=== PATIENT | female | born 1975 | race Caucasian/White ===

== ENCOUNTER 2019-09-07 11:03 | Outpatient (CLI) | payer OTHER, SELFPAY ==
--- NOTE | ~2019-09-07 | XR_ITS ---
XR chest 2V DATE: 09/07/2019 11:27 INDICATION: Cough for 4 days TECHNIQUE: PA and lateral views COMPARISON: None FINDINGS: Normal heart size. No hilar or mediastinal enlargement. No pulmonary infiltrate or consolid ation, pleural effusion or pulmonary vascular congestion or pneumothorax. IMPRESSION: No active cardiopulmonary disease Reviewed, dictated and finalized at location B.
[2019-09-07 11:38] LABS: Basophils Absolute Auto 0.1 K/mm3 (0.0-0.1); Basophils Percent Auto 1.2 % (0.2-1.2); Eosinophils Absolute Auto 0.1 K/mm3 (0-0.3); Eosinophils Percent Auto 2.5 % (0-4.4); Hematocrit 40.9 % (37.0-47.0); Hemoglobin 13.4 g/dL (12.0-15.0); Immature Granulocyte Absolute 0.01 K/mm3 (0.00-0.031); Immature Granulocyte Percent A 0.2 % (0-0.5); Lymphocytes Absolute Auto 2.01 K/mm3 (0.9-3.2); Lymphocytes Percent Auto 39.4 % (18.3-44.2); Mean Corpuscular HGB Conc 32.8 g/dl (32-36); Mean Corpuscular Hemoglobin 29.1 pg (26-34); Mean Corpuscular Volume 88.7 fl (80-100); Mean Platelet Volume 8.4 fl (7.4-10.4); Monocytes Absolute Auto 0.3 K/mm3 (0.1-0.6); Monocytes Percent Auto 6.3 % (2.6-8.5); Neutrophils Absolute Auto 2.6 K/mm3 (1.3-6.7); Neutrophils Percent Auto 50.4 % (45.5-73.1); Platelet Count Result 343 k/mm3 (150-375); Red Blood Count 4.61 M/mm3 (4.2-5.4); Red Cell Distribution Width 12.4 % (11.5-14.5); White Blood Count 5.1 K/mm3 (4.5-10.0)
[2019-09-07 11:38] LABS: Influenza Control Positive
== END 2019-09-07 11:04 | disposition home or self-care (01) ==
PROVIDERS: PCP Internal Medicine; Visit Provider Internal Medicine
DX: R05 Cough (principal); R69 Illness, unspecified; R07.89 Other chest pain
CPT/HCPCS: 71046; 85025; 87081; 87804; 87880

== ENCOUNTER → 2020-01-14 12:55 | Outpatient (CLI) | payer OTHER, SELFPAY ==
--- NOTE | ~2020-01-14 | US_ITS ---
EXAMINATION: US pelvic complete w TV DATE: 01/14/2020 13:21 INDICATION: Right lower quadrant, pelvic, and perineal pain TECHNIQUE: Multiple transabdominal and endovaginal sonographic images of the pelvis were obtained. COMPARISON: None. FINDINGS: The uterus measures 8.5 x 4.9 x 5.9 cm. The endometrial complex measures 6 mm. The right ov raquel measures 3 x 1.8 x 2.3 cm. The left ovary measures 2.8 x 3 x 1.9 cm. There is normal vascular luis w in the ovaries. There is no free fluid in the pelvis. IMPRESSION: 1. No sonographic correlate for the patient's symptoms. Reviewed, dictated and finalized at location A.
== END ==
PROVIDERS: Visit Provider Student in an Organized Health Care Education/Training Program
DX: R10.2 Pelvic and perineal pain (principal)
CPT/HCPCS: 76830; 76856

== ENCOUNTER 2020-02-22 11:02 | Outpatient (CLI) | payer OTHER, SELFPAY ==
--- NOTE | 2020-02-22 11:04 | ECG_ITS ---
Measurements Intervals [place] Rate: 85 P: 74 RI: 168 QRS: 42 QRSD: 67 T: 44 QT: 362 QTc: 433 Interpretive Statements SINUS RHYTHM POSSIBLE LEFT ATRIAL ENLARGEMENT CANNOT RULE OUT SEPTAL INFARCT, AGE INDETERMINATE BASELINE ARTIFACT- I, II, III, AVR, AVL ABNORMAL ECG Electronically Signed On 02-22-2020 11:55:57 CDT by Osmin Campuzano D.O.
[2020-02-22 11:36] LABS: Basophils Absolute Auto 0.1 K/mm3 (0.0-0.1); Eosinophils Absolute Auto 0.2 K/mm3 (0-0.3); Eosinophils Percent Auto 3.3 % (0-4.4); Hematocrit 40.9 % (37.0-47.0); Hemoglobin 13.6 g/dL (12.0-15.0); Immature Granulocyte Absolute 0.01 K/mm3 (0.00-0.031); Immature Granulocyte Percent A 0.2 % (0-0.5); Lymphocytes Absolute Auto 1.96 K/mm3 (0.9-3.2); Lymphocytes Percent Auto 40.2 % (18.3-44.2); Mean Corpuscular HGB Conc 33.3 g/dl (32-36); Mean Corpuscular Volume 87.2 fl (80-100); Mean Platelet Volume 8.7 fl (7.4-10.4); Monocytes Absolute Auto 0.3 K/mm3 (0.1-0.6); Neutrophils Absolute Auto 2.4 K/mm3 (1.3-6.7); Neutrophils Percent Auto 49.3 % (45.5-73.1); Platelet Count Result 351 k/mm3 (150-375); Red Blood Count 4.69 M/mm3 (4.2-5.4); Red Cell Distribution Width 12.9 % (11.5-14.5); White Blood Count 4.9 K/mm3 (4.5-10.0)
== END 2020-02-22 11:03 | disposition home or self-care (01) ==
LOC: ANHSURGERY 11:04
PROVIDERS: PCP Internal Medicine; Visit Provider Student in an Organized Health Care Education/Training Program
DX: Z01.818 Encounter for other preprocedural examination (principal); R10.2 Pelvic and perineal pain; R94.31 Abnormal electrocardiogram [ECG] [EKG]
CPT/HCPCS: 36415; 85025; 86850; 86900; 86901; 93005

== ENCOUNTER 2020-03-01 02:20 | Outpatient (CLI) | payer OTHER, SELFPAY ==
[2020-03-01 19:20] LABS: SARS-CoV-2 RNA PCR Negative
== END 2020-03-01 02:21 | disposition home or self-care (01) ==
LOC: ANHCOVIDDT 02:20
PROVIDERS: PCP Internal Medicine; Visit Provider Student in an Organized Health Care Education/Training Program
DX: Z01.812 Encounter for preprocedural laboratory examination (principal); Z20.828 Contact with and (suspected) exposure to other viral communicable diseases
CPT/HCPCS: 87635; C9803; U0003

== ENCOUNTER 2020-03-03 09:18 | Inpatient (IN) | payer OTHER, SELFPAY ==
[2020-02-17 10:02] VITALS: BMI 23.8
--- NOTE | 2020-03-02 12:10 | PM.IMHP ---
H&P: HPI History of Present Illness Date/Time: 03/02/20 12:10 Patient is a 44 year old Patient initially presented to [facility] operator office in 12/2019 with a long history of chronic pelvic pain that began after her C/S in 11/2016. After this surgery, patient reports development of dysmenorrhea, menorrhagia, as well as pelvic pain that has been persistent and has progressively worsened. She reports significantly heavier menses as well as significant cramping and passage of clots. She also reports pain near her C/S scar that seems to be more external near the skin. Pain is near umbilicus and is located mostly on the lower right side of her pelvis. States that pain radiates to right hip and down thigh as well as radiates to her back. She experiences occasional pain at other times during the month as well, not just during menstrual cycle. She describes this pain as similar to ovarian stimulation when she was was going through IVF cycles. She also reports worsening dyspareunia and an increase in urinary frequency for past few months, however, denies any dysuria or malodorous urine. She was started on OCPs by previous provided, which she d/c'd due to nausea. She has also tried NuvaRing as well as a Mirena IUD without any improvement. She was started on Orilissa 150mg in 11/2018. She also takes Aleve with minimal relief. Orilissa was increased during office visit in 12/2019 and patient reports no improvement of symptoms. Patient still reports severe, constant pelvic pain and discomfort and a constant pressure sensation. States that pain is becoming disruptive to her life and preventing her from functioning normally. Patient does not desire future fertility. She desires more definitive management with a hysterectomy. Chief complaint: pelvic pain, menorrhagia Narrative: Marycarmen Franco is a 44 year old female Review of Systems Review of Systems: All systems reviewed & are unremarkable except as noted in HPI and below Constitutional: Constitutional: Reports as per HPI, Reports no additional constitutional complaints, Denies chills, Denies fever(s), Denies headache(s) and Denies night sweats Eyes: Eyes: Reports as per HPI and Reports no additional eye complaints ENT: Reports system reviewed and no additional complaints, except as documented, Reports as per HPI, Reports Normal hearing present and Denies headache(s) Cardiovascular: Cardiovascular: Reports as per HPI, Reports no additional cardiovascular complaints, Denies chest pain and Denies dyspnea Respiratory: Respiratory: Reports as per HPI, Reports no additional respiratory complaints, Denies cough and Denies dyspnea Gastrointestinal: Gastrointestinal: Reports as per HPI, Reports no additional gastrointestinal complaints, Denies abdominal pain, Denies change in bowel habits, Denies change in stool character, Denies nausea and Denies vomiting Genitourinary: Genitourinary: Reports no additional female genitourinary complaints, Reports as per HPI, Reports abnormal vaginal bleeding, Denies genital lesions, Reports menorrhagia, Denies hot flashes, Reports dyspareunia, Reports dysmenorrhea, Reports pelvic pain, Denies sexual dysfunction, Denies urinary incontinence, Denies vaginal discharge, Denies vaginal dryness and Denies vaginal odor Musculoskeletal: Musculoskeletal: Reports no additional musculoskeletal complaints and Reports as per HPI Integumentary/Breasts: Skin/Breast: Reports system reviewed and no additional complaints, except as docu, Reports as per HPI, Denies breast pain and Denies nipple discharge Neurologic: Reports system reviewed and no additional complaints, except as documented, Reports as per HPI, Reports Normal hearing present and Denies headache(s) Psychiatric: Psychiatric: Reports no additional psychiatric complaints, Reports as per HPI, Denies anxiety and Denies depression Endocrine: Endocrine: Reports no additional endocrine complaints and Reports as per HPI Hematologic/Lymphatic: Hematologic/Lymphatic: Reports
[2020-03-03] VITALS (23 sets, daily range): BP systolic 96–134; BP diastolic 56–82; PULSE 66–98; RESP 13–22; TEMP 36.3–37.2; O2SAT 97–100
[2020-03-03] MEDS: ACETAMINOPHEN 500 MG TABLET 1000 MG PO (06:34)
--- NOTE | 2020-03-03 07:00 | WPDANESEPPF ---
Anes - Initial Pre Proc Eval Procedure: Operation Date: 03/03/20 07:30 Proposed Procedures p Total Abdominal Hysterectomy With Bilateral Salpingectomy - Radha Molina MD Date/Time: 03/03/20 07:00 Surgeon: Radha Molina MD Pre Op Diagnosis: pelvic pain, menorrhagia Patient Data Age: 44 Gender: F Height: 5 ft 6.5 in Weight: 69.2 kg Allergies Allergy/AdvReac Type Severity Reaction Status Date / Time codeine AdvReac Intermediate Nausea And Verified 03/03/20 06:25 Vomiting Home Medications Medication Instructions Recorded Confirmed Type ferrous sulfate 325 mg (65 mg 325 mg PO DAILY 08/12/19 03/03/20 History iron) tablet lactobacillus combination no.8 3 3,000 mmu cells PO DAILY 08/12/19 03/03/20 History billion cell capsule omega-3 fatty acids 1,000 mg 1,000 mg PO HS 08/12/19 03/03/20 History capsule tramadol 50 mg tablet 50 mg PO Q6H PRN #30 tablet 02/01/20 03/03/20 Rx Synthroid 50 mcg tablet 50 mcg PO DAILY #30 tablet NS 02/18/20 03/03/20 Rx Patient hx anesthesia problems: post op nausea/vomiting Family hx anesthesia problems: none PMFSH Past Medical History Medical History Abnormal TSH Blood transfusion during current hospitalization BMI 22.0-22.9, adult Bronchitis Campylobacter gastroenteritis Chest discomfort Chronic sinusitis Cough Encounter for routine adult health examination without abnormal findings Exploratory laparotomy scar Hematoma Hypothyroidism Hypothyroidism (acquired) Iron deficiency anemia On alf drug therapy Otalgia Other ovarian cyst, unspecified side Reactive airways dysfunction syndrome RUQ pain SOB (shortness of breath) Surgical History Surgical History H/O knee surgery History of removal of ovarian cyst History of rhinoplasty Hx of tonsillectomy Twin delivery by [place] teeth extracted Family History Family History Mother Diabetes mellitus Family history of pancreatic cancer Grandparent Acute myocardial infarction Father Family history of pancreatic cancer Other Family history of seizure disorder Social History Social History Smoking status: Never smoker Second hand tobacco smoke exposure: No Spiritual care concerns: No Anes - Eval Final PreProcedure Day of Procedure 03/03/20 07:00 Patient weight: normal Heart: regular rate and rhythm Lungs: clear to auscultation Airway: Mallampati scale class II Neurological: alert and oriented Last oral intake: >/= 8 hours ASA classification: II Emergent: no Anesthetic plan: proceed Anesthesia type and monitoring: general ETT and standard monitoring Informed Consent: The patient's anesthetic plan and its attendant risks and benefits were discussed with the patient/family/POA. Questions were solicited and answers provided to the satisfaction of the patient/family/POA.
[2020-03-03] MEDS: KETOROLAC 15 MG/ML VIAL (*BKC) IV PUSH (07:06)
[2020-03-03] MEDS: LACTATED RINGERS 1,000 ML 30 ML IV CONT ×2 (07:06→10:06)
[2020-03-03] MEDS: SCOPOLAMINE 1.5 MG PATCH TRANSDERM (07:11)
--- NOTE | 2020-03-03 07:20 | WPDHPUPDATE1 ---
History and Physical Update Update Date/Time: 03/03/20 07:20 History and Physical has been reviewed, including an updated exam of the patient. There are NO changes in the patient's condition. Risks, benefits, and alternatives have been discussed and questions answered. Patient agrees to proceed with procedure.
[2020-03-03] MEDS: ceFAZolin 2 GM/D5W 50 ML 2 GM/50 ML BAG IVPB (07:45)
--- NOTE | 2020-03-03 10:00 | PM.PROC ---
Procedure Note - Detailed Date of procedure: 03/03/20 Pre-op diagnosis: pelvic pain, menorrhagia dysmenorrhea Post-op diagnosis: same Procedure performed: Total abdominal hysterectomy Bilateral salpingectomy Description of procedure: The patient was taken to the operating room where she self transferred to the operating room table. She was placed in the dorsal supine position. General anesthesia was administered and found to be adequate. The patient was prepped and draped in the usual sterile fashion. A Pfannenstiel skin incision was made with a scalpel and carried through to the underlying layer of fascia with the Bovie. The fascia was incised in the midline and the incision was extended laterally with the use of forceps and Peralta scissors. The inferior aspect of the fascial incision was grasped with Myesha clamps, elevated, and the underlying rectus muscles were dissected off with Peralta scissors. Attention was turned to the superior aspect of the fascial incision, which in a similar manner was grasped with Myesha clamps, elevated, and the underlying rectus muscles also dissected off with Peralta scissors. Moderately dense adhesions were noted in the midline making entry into the peritoneal cavity slightly more difficult in this area. Decision was made to access and enter peritoneal cavity just lateral to the midline. The rectus muscles were gently retracted and the peritoneum was identified, grasped with Allis clamps, and entered carefully with Metzenbaum scissors. The underlying structures were palpated with fingers and noted to be free of any posterior or lateral adhesions. The peritoneal incision was extended inferiorly to enhance visualization. Two lap pads were placed laterally beneath the rectus muscle bellies and a Luisa retractor was placed. Three additional lap pads were placed in the abdomen to displace the bowel cephalad and laterally. The uterus was grasped and guided towards the incision. Pean clamps were placed near the left and right uterine cornua for traction and elevation. The bladder was noted to be mostly inferior to the cervix. The right round ligament was identified, grasped with [place] clamp, and suture ligated. The round ligament was transected with Bovie. The anterior leaf of the broad ligament was carefully dissected towards the midline. An incision in the posterior leaf of the broad ligament on the right side was created with the Bovie. The right fallopian tube was identified and grasped with a [place] clamp. The LigaSure device was used to transect the mesosalpinx beneath the tube to the level of the cornua. The LigaSure device was then used to transect the utero-ovarian ligament on the right side. Dissection of the posterior leaf of the broad ligament was performed. Attention was then turned to the patient's left side. The left round ligament was identified, grasped with a [place] clamp, and suture ligated. The round ligament was transected with the Bovie and the anterior leaf of the broad ligament was carefully dissected towards the midline. The opposing ends were joined in the midline and a bladder flap was created to ensure the bladder was adequately displaced inferiorly. Bladder was displaced inferiorly with a sponge stick. An incision in the posterior leaf of the broad ligament on the left side was created with the Bovie. The left fallopian tube was identified and grasped with Dwaine clamp. The LigaSure device was used to transect the mesosalpinx beneath the tube to the level of the cornua. The LigaSure device was then used to transect the utero-ovarian ligament on the left side. Dissection of the posterior leaf of the broad ligament was performed and the uterine artery was skeletonized and well visualized. Attention was then turned back to the right side where the uterine artery was skeletonized and well visualized. The LigaSure device was used to cauterize the uterine artery on this side. The cardinal ligaments were serially ligated an
[2020-03-03] MEDS: DEXTROSE 5%/0.45% SOD CHL 1,000 ML 125 ML IV CONT ×2 (11:47→21:10)
[2020-03-03] MEDS: IBUPROFEN IV 800 MG/200 ML 800 MG/200 ML BAG 400 MG IVPB ×2 (13:36→19:04)
--- NOTE | 2020-03-03 13:43 | PC.NURSE ---
This patient, Marycarmen Franco, was admitted to OB 2nd Floor Room 288-00. Patient oriented to hospital policies and general routines including ID bracelet, bed and alarms, visiting hours, pain management, procedures, bathroom and other care routines, personal items, smoking policy, room service/diet, and visiting hours. Valuables list has been completed. Information on how to activate the Rapid Response Team has been discussed. Patient/Family are encouraged to report perceived risks to care and to ask questions if they do not understand what they are told or what they should do.
[2020-03-03] MEDS: ONDANSETRON INJ 4 MG/2 ML VIAL IV PUSH (15:38)
[2020-03-04] VITALS: BP 94/62; PULSE 80; RESP 18; TEMP 37; O2SAT 100
[2020-03-04] MEDS: IBUPROFEN IV 800 MG/200 ML 800 MG/200 ML BAG 400 MG IVPB ×2 (01:22→07:56)
[2020-03-04] MEDS: ONDANSETRON INJ 4 MG/2 ML VIAL IV PUSH ×2 (01:55→08:29)
[2020-03-04 03:46] VITALS: BP 94/60; PULSE 80; RESP 18; TEMP 37.1; O2SAT 100
[2020-03-04 05:12] LABS: Basophils Percent Auto 0.3 % (0.2-1.2); Eosinophils Percent Auto 0.2 % (0-4.4); Hematocrit 31.7 % (37.0-47.0); Hemoglobin 10.7 g/dL (12.0-15.0); Immature Granulocyte Absolute 0.03 K/mm3 (0.00-0.031); Immature Granulocyte Percent A 0.3 % (0-0.5); Lymphocytes Percent Auto 11.2 % (18.3-44.2); Mean Corpuscular HGB Conc 33.8 g/dl (32-36); Mean Corpuscular Hemoglobin 29.5 pg (26-34); Mean Corpuscular Volume 87.3 fl (80-100); Mean Platelet Volume 8.7 fl (7.4-10.4); Monocytes Absolute Auto 0.7 K/mm3 (0.1-0.6); Monocytes Percent Auto 7.3 % (2.6-8.5); Neutrophils Absolute Auto 7.9 K/mm3 (1.3-6.7); Neutrophils Percent Auto 80.7 % (45.5-73.1); Platelet Count Result 244 k/mm3 (150-375); Red Blood Count 3.63 M/mm3 (4.2-5.4); Red Cell Distribution Width 12.8 % (11.5-14.5); White Blood Count 9.8 K/mm3 (4.5-10.0)
[2020-03-04] MEDS: LEVOTHYROXINE SODIUM 50 MCG TABLET PO (07:55)
[2020-03-04] MEDS: DOCUSATE SODIUM 100 MG CAPSULE PO ×2 (07:55→18:29)
[2020-03-04] MEDS: SIMETHICONE 80 MG TAB.CHEW PO (07:56)
--- NOTE | 2020-03-04 08:48 | PM.GYNPNOP ---
DIGITAL MARKETING ANALYST - A/P Assessment and plan (1) History of hysterectomy: Code(s): Z90.710 - Acquired absence of both cervix and uterus Status: Acute Assessment and Plan: POD #1 s/p KARISHMA and b/l salpingectomy doing well continue routine postop care continue current pain management regimen, will add IV Ofirmev encourage OOB to chair, ambulation, and use of IS advance diet as tolerated Postoperative Procedures: Procedures Operation Date: 03/03/20 07:30 Actual Procedures Side Surgeon p Total Abdominal Hysterectomy With Bilateral Salpingectomy Bilateral Radha Molina MD Time Spent With Patient Time: Total time spent is greater than 50% in coordination of care (as documented) at patient's floor/unit and/or counseling patient: Time with patient: less than 15 minutes DIGITAL MARKETING ANALYST- PN:Subj Post-Op Subjective Date/time seen: 03/04/20 08:48 Patient reports feeling much better this AM. Pain is more controlled. Reports pain 5/10, which is tolerable. Denies any headache, chest pain, SOB, N/V. Has not had much PO yet. Franco removed this AM. Voided once since then. No flatus yet. Limited ambulation. Exam Const: General: comfortable and no acute distress GI: Inspection: non-distended GI Palp: Yes Soft to palpation and No Tenderness to palpation present (GI) Other: inc c/d/i Extrem: Right lower extremity: no edema Left lower extremity: no edema Other: no calf tenderness DIGITAL MARKETING ANALYST - PN: Obj Data Vital Signs Vital Signs: Vital Signs - 24 hr 03/03/20 10:05 03/03/20 10:09 03/03/20 10:20 Temperature 37.2 C Pulse Rate 83 70 Respiratory Rate 13 17 Blood Pressure 96/56 L 103/60 Pulse Oximetry 100 100 100 03/03/20 10:35 03/03/20 10:40 03/03/20 10:50 Temperature 36.4 C Pulse Rate 66 71 Respiratory Rate 16 19 Blood Pressure 97/62 L 109/72 Pulse Oximetry 100 99 100 03/03/20 11:00 03/03/20 11:11 03/03/20 11:30 Temperature 36.3 C L Pulse Rate 84 86 89 Respiratory Rate 16 22 H 20 Blood Pressure 106/71 123/75 111/71 Pulse Oximetry 100 100 99 03/03/20 11:45 03/03/20 12:00 03/03/20 12:30 Temperature Pulse Rate 84 98 98 Respiratory Rate 20 18 18 Blood Pressure 134/82 113/75 99/61 L Pulse Oximetry 99 100 97 03/03/20 13:00 03/03/20 14:00 03/03/20 15:13 Temperature Pulse Rate 94 98 Respiratory Rate 18 18 18 Blood Pressure 107/69 113/72 Pulse Oximetry 98 100 100 03/03/20 16:00 03/03/20 16:13 03/03/20 17:13 Temperature Pulse Rate 98 Respiratory Rate 18 16 16 Blood Pressure Pulse Oximetry 100 100 99 03/03/20 18:00 03/03/20 18:13 03/03/20 20:00 Temperature 36.8 C 36.6 C Pulse Rate 87 88 Respiratory Rate 20 20 20 Blood Pressure 100/62 97/62 L Pulse Oximetry 99 99 100 03/03/20 22:00 03/04/20 00:00 03/04/20 03:46 Temperature 37.0 C 37.1 C Pulse Rate 80 80 Respiratory Rate 16 18 18 Blood Pressure 94/62 L 94/60 L Pulse Oximetry 98 100 100 Intake/Output Intake/Output: Intake & Output 03/01/20 03/02/20 03/03/20 03/04/20 23:59 23:59 23:59 23:59 Intake Total 2150 219 Output Total 800 600 Balance 1350 -381 Meds/Results Medications: Active Medications Generic Name Dose Route Start Last Admin Trade Name Freq PRN Reason Stop Dose Admin Docusate Sodium 100 mg 03/03/20 17:00 03/04/20 07:55 Colace Capsule PO 100 mg BID HALLE Administration Hydromorphone HCl 1 mg 03/03/20 11:21 03/04/20 08:29 Dilaudid Inj IV PUSH 1 mg Q3H PRN Administration Pain Rated 7-10 Dextrose/Sodium Chloride 1,000 mls @ 125 mls/hr 03/03/20 11:21 03/03/20 21:10 Dextrose 5% Sodium Chloride 0.45% IV CONT 125 mls/hr .Q8H HALLE Administration Ibuprofen 800 mg in 200 mls @ 400 mls/hr 03/03/20 13:00 03/04/20 07:56 Caldolor 800 Mg/200 Ml IVPB 400 mls/hr Q6H HALLE Administration Hydromorphone HCl 6 mg in 30 mls @ 0 mls/hr 03/03/20 14:25 03/04/20 01:40 Dilaudid 0.2 Mg/Ml Veterinary Meat Inspector IV CONT Infused .Q0M PRN Titration PRINTMAKER Management
[2020-03-04] MEDS: DEXTROSE 5%/0.45% SOD CHL 1,000 ML 125 ML IV CONT ×2 (10:12→15:25)
[2020-03-04] MEDS: traMADol HCL 50 MG TABLET PO ×2 (14:30→20:38)
[2020-03-04] MEDS: IBUPROFEN 600 MG TABLET PO ×2 (14:30→20:38)
[2020-03-04 19:20] VITALS: BP 96/56; PULSE 79; RESP 18; TEMP 37.2; O2SAT 97
[2020-03-05] MEDS: IBUPROFEN 600 MG TABLET PO ×3 (02:40→18:39)
[2020-03-05] MEDS: traMADol HCL 50 MG TABLET PO (02:41)
[2020-03-05 07:07] VITALS: BP 96/53; PULSE 87; RESP 18; TEMP 36.2; O2SAT 98
[2020-03-05] MEDS: LEVOTHYROXINE SODIUM 50 MCG TABLET PO (07:16)
--- NOTE | 2020-03-05 07:50 | PC.NURSE ---
Dr. Molina here to see pt.
--- NOTE | 2020-03-05 08:05 | PM.GYNPNOP ---
ASBESTOS ABATEMENT WORKER - A/P Assessment and plan (1) History of hysterectomy: Code(s): Z90.710 - Acquired absence of both cervix and uterus Status: Acute Assessment and Plan: POD#2 doing well continue routine postop care encourage ambulation and use of IS will add PO Tylenol to pain regimen this AM anticipate dc home tomorrow Postoperative Procedures: Procedures Operation Date: 03/03/20 07:30 Actual Procedures Side Surgeon p Total Abdominal Hysterectomy With Bilateral Salpingectomy Bilateral Radha Molina MD Time Spent With Patient Time: Total time spent is greater than 50% in coordination of care (as documented) at patient's floor/unit and/or counseling patient: Time with patient: less than 15 minutes ASBESTOS ABATEMENT WORKER- PN:Subj Post-Op Subjective Date/time seen: 03/05/20 08:05 Patient reports feeling better this AM. Still reports soreness, however, pain reasonably controlled with PO pain medication. Reports slight headache this AM, which pt believes is attributed to hospital bed and pillow. Denies any chest pain or SOB. Reported mild nausea last night, resolved. Denies any vomiting. Ambulating well. Voiding without difficulty. +flatus. Exam Const: General: comfortable and no acute distress GI: Inspection: non-distended GI Palp: Yes Soft to palpation and No Tenderness to palpation present (GI) Other: inc c/d/i Extrem: Right lower extremity: no edema Left lower extremity: no edema Other: no calf tenderness ASBESTOS ABATEMENT WORKER - PN: Obj Data Vital Signs Vital Signs: Vital Signs - 24 hr 03/04/20 19:20 03/05/20 07:07 Temperature 37.2 C 36.2 C L Pulse Rate 79 87 Respiratory Rate 18 18 Blood Pressure 96/56 L 96/53 L Pulse Oximetry 97 98 Intake/Output Intake/Output: Intake & Output 03/02/20 03/03/20 03/04/20 03/05/20 23:59 23:59 23:59 23:59 Intake Total 2150 2934 Output Total 800 1575 Balance 1350 1359 Meds/Results Medications: Active Medications Generic Name Dose Route Start Last Admin Trade Name Freq PRN Reason Stop Dose Admin Docusate Sodium 100 mg 03/03/20 17:00 03/04/20 18:29 Colace Capsule PO 100 mg BID HALLE Administration Ibuprofen 600 mg 03/04/20 13:39 03/05/20 02:40 Motrin PO 600 mg Q6H PRN Administration Cramping Levothyroxine Sodium 50 mcg 03/04/20 06:30 03/05/20 07:16 Synthroid PO 50 mcg DAILY@0630 HALLE Administration Ondansetron HCl 4 mg 03/03/20 11:21 03/04/20 08:29 Zofran Inj IV PUSH 4 mg Q6H PRN Administration Nausea Simethicone 80 mg 03/03/20 11:21 03/04/20 07:56 Mylicon PO 80 mg Q2H PRN Administration Gas Tramadol HCl 50 mg 03/04/20 13:40 03/05/20 02:41 Ultram PO 50 mg Q6H PRN Administration Pain Rated 4-6 Labs CBC & Chem 7: 03/04/20 04:40
[2020-03-05] MEDS: ACETAMINOPHEN 325 MG TABLET 650 MG PO ×2 (12:36→21:05)
[2020-03-05] MEDS: DOCUSATE SODIUM 100 MG CAPSULE PO ×2 (12:37→17:06)
[2020-03-05] MEDS: ONDANSETRON HCL ODT 4 MG TABLET 8 MG PO (17:06)
[2020-03-05 18:35] VITALS: BP 110/69; PULSE 81; RESP 12; TEMP 36.9
[2020-03-05] MEDS: SIMETHICONE 80 MG TAB.CHEW PO (18:39)
[2020-03-06] MEDS: IBUPROFEN 600 MG TABLET PO ×2 (00:35→07:02)
[2020-03-06] MEDS: ACETAMINOPHEN 325 MG TABLET 650 MG PO (03:33)
[2020-03-06 06:50] VITALS: BP 120/62; PULSE 90; RESP 16; TEMP 36.8
[2020-03-06] MEDS: DOCUSATE SODIUM 100 MG CAPSULE PO (07:01)
[2020-03-06] MEDS: LEVOTHYROXINE SODIUM 50 MCG TABLET PO (07:03)
[2020-03-06] MEDS: SIMETHICONE 80 MG TAB.CHEW PO (07:03)
--- NOTE | 2020-03-06 08:20 | PM.GYNPNOP ---
ATTENDING AMBULATORY CARE - A/P Assessment and plan (1) Post-operative state: Code(s): Z98.890 - Other specified postprocedural states Status: Acute Assessment and Plan: POD3 s/p abdominal hysterectomy and BSO. She is doing well. Adequate pain control. Will discharge home. Discussed discharge precautions. She has follow up appointment scheduled for two weeks. Postoperative Procedures: Procedures Operation Date: 03/03/20 07:30 Actual Procedures Side Surgeon p Total Abdominal Hysterectomy With Bilateral Salpingectomy Bilateral Radha Molina MD Time Spent With Patient Time: Total time spent is greater than 50% in coordination of care (as documented) at patient's floor/unit and/or counseling patient: Time with patient: less than 15 minutes ATTENDING AMBULATORY CARE- PN:Subj Post-Op Subjective Date/time seen: 03/06/20 08:20 She states adequate pain control. She is ambulating. Positive flatus. Tolerated regular diet. No chest pain or leg pain. Exam Const: General: no acute distress Resp: Auscultation: clear to auscultation bilaterally Cardio: Rate: regular rate Rhythm: regular rhythm GI: Other: bowel sounds present, appropriate incisional tenderness, incision no drainage or erythema Extrem: General: normal to inspection, no calf tenderness bilaterally and no edema Psych: Mental Status: mental status grossly normal ATTENDING AMBULATORY CARE - PN: Obj Data Vital Signs Vital Signs: Vital Signs - 24 hr 03/05/20 18:35 03/06/20 06:50 Temperature 98.5 F 98.3 F Pulse Rate 81 90 Respiratory Rate 12 16 Blood Pressure 110/69 120/62 Intake/Output Intake/Output: Intake & Output 03/03/20 03/04/20 03/05/20 03/06/20 23:59 23:59 23:59 23:59 Intake Total 2150 2934 Output Total 800 1575 Balance 1350 1359 Meds/Results Medications: Active Medications Generic Name Dose Route Start Last Admin Trade Name Freq PRN Reason Stop Dose Admin Acetaminophen 650 mg 03/05/20 08:00 03/06/20 03:33 Tylenol Tablet PO 650 mg Q6H HALLE Administration Docusate Sodium 100 mg 03/03/20 17:00 03/06/20 07:01 Colace Capsule PO 100 mg BID HALLE Administration Ibuprofen 600 mg 03/04/20 13:39 03/06/20 07:02 Motrin PO 600 mg Q6H PRN Administration Cramping Levothyroxine Sodium 50 mcg 03/04/20 06:30 03/06/20 07:03 Synthroid PO 50 mcg DAILY@0630 HALLE Administration Ondansetron HCl 4 mg 03/05/20 21:00 Zofran Odt PO Q4-6H PRN Nausea And Vomiting Simethicone 80 mg 03/03/20 11:21 03/06/20 07:03 Mylicon PO 80 mg Q2H PRN Administration Gas Tramadol HCl 50 mg 03/04/20 13:40 03/05/20 02:41 Ultram PO 50 mg Q6H PRN Administration Pain Rated 4-6 Labs CBC & Chem 7: 03/04/20 04:40
--- NOTE | 2020-03-06 08:27 | PM.OBDSVD ---
DS: Admitting Diagnosis Admitting Diagnosis Admitting Diagnosis: pelvic pain, menorrhagia OB - DS: Summary OB Procedures : None OB Procedures Intrapartum: Other OB Procedures: : None Peripartum Data Procedures: Procedures Operation Date: 03/03/20 07:30 Actual Procedures Side Surgeon p Total Abdominal Hysterectomy With Bilateral Salpingectomy Bilateral Radha Molina MD Time Spent with Patient Time attestation: Total time spent providing and/or coordinating discharge services: Exam Const: General: comfortable Resp: Effort & Inspection: normal respiratory effort Auscultation: clear to auscultation bilaterally Cardio: Rate: regular rate GI: GI Palp: Yes Soft to palpation Psych: Appearance: grossly normal DS: Data Data Completed and Pending Pending studies at discharge: Pending at discharge 03/03/20 08:55 Surgical [PTH] Routine Discharge Plan Discharge Attending physician on discharge: Manjeet Ruvalcaba Discharging Clinician: Manjeet Ruvalcaba Anticipated Discharge Date/Time: 03/06/20 08:24 Patient Disposition: Home, Self-Care Activity: may shower, no driving and pelvic rest Diet: regular Discharge Instructions: Call for fever, chills, persistent nausea/vomiting, leg pain or redness, or vaginal bleeding more than spotting. No lifting. May take over the counter Ibuprofen and Tylenol for pain. Follow directions on bottle. Take regularly prescribed prescription medication. Patient Instructions: Antibiotic Form Stand Alone Forms: General Discharge Information Follow-up/Referrals: Radha Molina MD [Physician] - Keep Reg. Scheduled Appt. Discharge Medications: No Action ferrous sulfate [Feosol] 325 mg (65 mg iron) tablet 325 mg PO DAILY RF: 0 omega-3 fatty acids [Fish Oil Concentrate] 1,000 mg capsule 1,000 mg PO HS RF: 0 Adult Probiotic 3 billion cell capsule 3,000 mmu cells PO DAILY RF: 0 tramadol 50 mg tablet 50 mg PO Q6H PRN (Reason: pain) Qty: 30 RF: 0 levothyroxine [Synthroid] 50 mcg tablet 50 mcg PO DAILY Qty: 30 RF: 5 Date of admission: 03/03/20 09:18 Primary Care Provider: Donn Cohen Admitting Provider: Radha Molina Attending physician on admission: Radha Molina
== END 2020-03-06 09:12 | disposition home or self-care (01) | DRG 743 ==
LOC: ANHOB2 03-06 08:27
PROVIDERS: Admitting Provider Student in an Organized Health Care Education/Training Program; PCP Internal Medicine; Visit Provider Obstetrics & Gynecology
PROC: 0UT94ZZ Resection of Uterus, Percutaneous Endoscopic Approach (ICD-10-PCS; principal; 2020-03-03 07:30)
DX: N92.0 Excessive and frequent menstruation with regular cycle (principal); N94.6 Dysmenorrhea, unspecified; R10.2 Pelvic and perineal pain; E03.9 Hypothyroidism, unspecified; D50.9 Iron deficiency anemia, unspecified
CPT/HCPCS: 36415; 85025; 87635; 88307; A9270; C9803; J0131; J0690; J1100; J1170; J1200; J1741; J1885; J2250; J2370; J2405; J2704; J2710; J2765; J3010; J7120; U0003

== ENCOUNTER 2020-06-27 14:00 | Outpatient (CLI) | payer OTHER, SELFPAY ==
--- NOTE | ~2020-06-27 | XR_ITS ---
XR abdomen/kub 1V 06/27/2020 14:57 INDICATION: Right flank pain TECHNIQUE: KUB COMPARISON: CT dated 01/14/2019 FINDINGS: Bowel gas pattern is normal. There is no evidence of free air, mass, organomegaly, ascites or obstruction. No abnormal calculi are seen. The bones appear intact. IMPRESSION: 1: No acute abdominal abnormality identified. Reviewed, dictated and finalized at location A. EL ENGINEER
[2020-06-27 14:58] LABS: Basophils Absolute Auto 0.1 K/mm3 (0.0-0.1); Basophils Percent Auto 0.8 % (0.2-1.2); Eosinophils Absolute Auto 0.2 K/mm3 (0-0.3); Eosinophils Percent Auto 2.1 % (0-4.4); Hematocrit 41.6 % (37.0-47.0); Hemoglobin 13.7 g/dL (12.0-15.0); Immature Granulocyte Absolute 0.02 K/mm3 (0.00-0.031); Immature Granulocyte Percent A 0.3 % (0-0.5); Lymphocytes Percent Auto 27.4 % (18.3-44.2); Mean Corpuscular HGB Conc 32.9 g/dl (32-36); Mean Corpuscular Hemoglobin 29.1 pg (26-34); Mean Corpuscular Volume 88.5 fl (80-100); Mean Platelet Volume 8.9 fl (7.4-10.4); Monocytes Absolute Auto 0.4 K/mm3 (0.1-0.6); Monocytes Percent Auto 5.5 % (2.6-8.5); Neutrophils Absolute Auto 4.7 K/mm3 (1.3-6.7); Neutrophils Percent Auto 63.9 % (45.5-73.1); Platelet Count Result 390 k/mm3 (150-375); Red Cell Distribution Width 12.7 % (11.5-14.5); White Blood Count 7.3 K/mm3 (4.5-10.0)
[2020-06-27 15:00] LABS: Add Urine Microscopic? NO; Appearance Urine Clear (Clear); Bilirubin Urine Negative (Negative); Blood Urine Negative (Negative); Color Urine Straw (Yellow); Glucose Urine UA Negative (Negative); Ketones Urine Negative (Negative); Leukocyte Esterase Ur Negative LEU/UL (NEGATIVE); Nitrate Urine Negative (Negative); Protein Urine Negative (Negative); Specific Grav Ur 1.009 (1.001-1.035); Urobilinogen Urine Negative mg/dL (<2.0)
[2020-06-27 15:09] LABS: Alanine Aminotransferase 36 U/L (4-35); Albumin Level 4.3 g/dL (3.5-5.1); Alkaline Phosphatase 40 U/L (38-126); Amylase 64 U/L (30-110); Aspartate Amino Transferase 37 U/L (14-36); Bilirubin,Total 0.3 mg/dL (0.2-1.3); Lipase 135 U/L (23-300)
[2020-06-27 15:11] LABS: Alanine Aminotransferase 36 U/L (4-35); Albumin Level 4.3 g/dL (3.5-5.1); Alkaline Phosphatase 41 U/L (38-126); Anion Gap 6 mmol/L (8-16); Aspartate Amino Transferase 36 U/L (14-36); Bilirubin,Total 0.3 mg/dL (0.2-1.3); Blood Urea Nitrogen 17 mg/dL (7-17); Calcium 9.9 mg/dL (8.4-10.2); Carbon Dioxide 28 mmol/L (22-30); Chloride 104 mmol/L (98-107); Estimated Glomerular Filt Rate > 60; Glucose 98 mg/dL (65-105); Potassium 4.1 mmol/L (3.4-5.0); Sodium 138 mmol/L (137-145)
== END 2020-06-27 14:01 | disposition home or self-care (01) ==
PROVIDERS: PCP Internal Medicine; Visit Provider Internal Medicine
DX: R35.0 Frequency of micturition (principal); R10.11 Right upper quadrant pain; R79.89 Other specified abnormal findings of blood chemistry; Z51.81 Encounter for therapeutic drug level monitoring; Z79.899 Other long term (current) drug therapy
CPT/HCPCS: 36415; 74018; 80053; 80076; 81003; 82150; 83690; 85025; 87086

== ENCOUNTER 2020-06-28 08:02 | Outpatient (CLI) | payer OTHER, SELFPAY ==
--- NOTE | ~2020-06-28 | US_ITS ---
US right upper quadrant INDICATION: Right upper quadrant pain PROCEDURE: Realtime right upper abdominal ultrasound. COMPARISON: No prior studies for comparison. FINDINGS: The pancreas is normal without focal mass or pancreatic ductal dilation. Liver echotexture is normal without focal mass or intrahepatic biliary dilatation. There is normal directional flow i n the portal vein. The gallbladder is normal without stones, gallbladder wall thickening or pericholecystic fluid. Comm on bile duct measures 3 mm. No sonographic Drew's sign. IMPRESSION: 1: Normal limited abdominal ultrasound. Reviewed, dictated and finalized at location A. SEXUAL ASSAULT
== END 2020-06-28 08:03 | disposition home or self-care (01) ==
PROVIDERS: PCP Internal Medicine; Visit Provider Internal Medicine
DX: R10.11 Right upper quadrant pain (principal); R35.0 Frequency of micturition
CPT/HCPCS: 76705

== ENCOUNTER → 2020-07-03 11:15 | Outpatient (CLI) | payer OTHER, SELFPAY ==
--- NOTE | ~2020-07-03 | MM_ITS ---
EXAMINATION: MM screening dickson BI w tiffanie HISTORY: Screening TECHNIQUE: Craniocaudal and mediolateral oblique 3-D tomosynthesis images were obtained and synthetic 2-D images were generated. CAD analysis was submitted and interpreted. COMPARISON: 03/31/2018 BREAST PARENCHYMAL COMPOSITION: The breasts are heterogeneously dense, which may obscure small masses . FINDINGS: There is no evidence of suspicious mass, calcification, or architectural distortion to sugg est malignancy in either breast. There has been no suspicious interval change. IMPRESSION: 1. No mammographic evidence of malignancy. 2. Recommend routine screening mammography in one year. BI-RADS Category 1: Negative Reviewed, dictated and finalized at location A. LOGY MANAGER
== END ==
PROVIDERS: PCP Internal Medicine; Visit Provider Student in an Organized Health Care Education/Training Program
DX: Z12.31 Encounter for screening mammogram for malignant neoplasm of breast (principal)
CPT/HCPCS: 77063; 77067

== ENCOUNTER → 2020-10-19 12:45 | Outpatient (CLI) | payer OTHER, SELFPAY ==
--- NOTE | ~2020-10-19 | US_ITS ---
EXAMINATION: US pelvic complete w TV DATE: 10/19/2020 13:18 INDICATION: Pelvic pain. Comparison:Ultrasound dated 01/14/2020 TECHNIQUE: Multiple transabdominal and endovaginal sonographic images of the pelvis performed. FINDINGS: The uterus is surgically absent. The right ovary measures 4.3 x 2 x 3.8 cm and the left ova ry measures 3 x 2 x 2.7 cm. There are small follicles in each ovary. Normal doppler signal in both o varies. There is no free fluid in the pelvis. There are no abnormal masses seen on either side. IMPRESSION: 1. Unremarkable pelvic ultrasound post hysterectomy. Reviewed, dictated and finalized at location B.
== END ==
PROVIDERS: Visit Provider Student in an Organized Health Care Education/Training Program
DX: R10.2 Pelvic and perineal pain (principal)
CPT/HCPCS: 76830; 76856

== ENCOUNTER 2021-01-23 01:59 | Day surgery (SDC) | payer OTHER, SELFPAY ==
[2021-01-09 14:32] VITALS: BMI 25.2
[2021-01-23 09:02] VITALS: BP 108/74; PULSE 87; RESP 18; TEMP 36.5; O2SAT 99; BMI 27.1
--- NOTE | 2021-01-23 09:30 | WPDANESEPPF ---
Anes - Initial Pre Proc Eval Procedure: Operation Date: 01/23/21 10:15 Proposed Procedures p Colonoscopy - Guillermo Romero MD Date/Time: 01/23/21 09:30 Surgeon: Guillermo Romero MD Pre Op Diagnosis: diarrhea Patient Data Age: 45 Gender: F Height: 1.7 m Weight: 78.7 kg Last Vital Signs Temp 36.5 C 01/23/21 09:02 Pulse 87 01/23/21 09:02 Resp 18 01/23/21 09:02 BP 108/74 01/23/21 09:02 Pulse Ox 99 01/23/21 09:02 Allergies Allergy/AdvReac Type Severity Reaction Status Date / Time codeine AdvReac Intermediate Nausea And Verified 01/23/21 09:01 Vomiting Home Medications Medication Instructions Recorded Confirmed Type lactobacillus combination no.8 3 3,000 mmu cells PO DAILY 08/12/19 01/09/21 History billion cell capsule omega-3 fatty acids 1,000 mg 1,000 mg PO HS 08/12/19 01/09/21 History capsule levocetirizine 5 mg tablet 5 mg PO DAILY PRN 05/29/20 01/09/21 History Synthroid 88 mcg tablet 88 mcg PO DAILY #90 tablet NS 09/21/20 01/23/21 Rx Patient hx anesthesia problems: none Family hx anesthesia problems: none PMFSH Past Medical History Medical History Abnormal TSH Blood transfusion during current hospitalization BMI 22.0-22.9, adult BMI 25.0-25.9,adult BMI 26.0-26.9,adult Bronchitis Campylobacter gastroenteritis Chest discomfort Chronic sinusitis Costochondritis Cough Encounter for routine adult health examination without abnormal findings Exploratory laparotomy scar Hematoma Hypothyroidism Hypothyroidism (acquired) Iron deficiency anemia On intermediate drug therapy Otalgia Other ovarian cyst, unspecified side Reactive airways dysfunction syndrome RUQ pain Sinus headache SOB (shortness of breath) Swelling, lymph nodes URI (upper respiratory infection) Surgical History Surgical History H/O knee surgery History of removal of ovarian cyst History of rhinoplasty Hx of tonsillectomy S/P total hysterectomy Twin delivery by [place] teeth extracted Family History Family History Mother Diabetes mellitus Family history of pancreatic cancer Grandparent Acute myocardial infarction Father Family history of pancreatic cancer Other Family history of seizure disorder Social History Social History Smoking status: Never smoker Second hand tobacco smoke exposure: No Alcohol intake: current Alcohol use details: Monthly Living arrangements: alone Spiritual care concerns: No Anes - Eval Final PreProcedure Day of Procedure 01/23/21 09:30 Patient weight: overweight Heart: regular rate and rhythm Lungs: clear to auscultation and normal air movement Airway: Mallampati scale class II Neurological: alert and oriented Last oral intake: >/= 8 hours ASA classification: II Emergent: no Anesthetic plan: proceed Anesthesia type and monitoring: general GIVS Informed Consent: The patient's anesthetic plan and its attendant risks and benefits were discussed with the patient/family/POA. Questions were solicited and answers provided to the satisfaction of the patient/family/POA.
--- NOTE | 2021-01-23 10:30 | WPDHPUPDATE1 ---
History and Physical Update Update Date/Time: 01/23/21 10:30 History and Physical has been reviewed, including an updated exam of the patient. There are NO changes in the patient's condition. Risks, benefits, and alternatives have been discussed and questions answered. Patient agrees to proceed with procedure.
[2021-01-23] MEDS: LACTATED RINGERS 1,000 ML 150 ML IV CONT (10:33)
[2021-01-23 10:58] VITALS: BP 95/55; PULSE 86; RESP 23; O2SAT 100
[2021-01-23 11:08] VITALS: BP 104/68; PULSE 86; RESP 23; O2SAT 100
[2021-01-23 11:15] VITALS: BP 115/72; PULSE 75; RESP 23; O2SAT 98
== END 2021-01-23 11:40 | disposition home or self-care (01) ==
PROVIDERS: PCP Internal Medicine; Visit Provider Internal Medicine Gastroenterology
PROC: 0DJD8ZZ Inspection of Lower Intestinal Tract, Via Natural or Artificial Opening Endoscopic (ICD-10-PCS; CPT 45378; principal; 2021-01-23 10:15)
DX: R19.7 Diarrhea, unspecified (principal); R10.9 Unspecified abdominal pain; E03.9 Hypothyroidism, unspecified; D50.8 Other iron deficiency anemias
CPT/HCPCS: 45380; 88305; J2704; J7120

== ENCOUNTER 2021-02-08 11:00 | Outpatient (RCR) | payer OTHER, SELFPAY ==
--- NOTE | 2020-11-23 14:02 | PTOPEVAL ---
INITIAL PHYSICAL THERAPY EVALUATION and PLAN OF CARE Thank you for referring Marycarmen Franco to [facility].? Marycarmen is scheduled to be seen for physical therapy? 1x/week for 5 weeks. Please review, sign, date and return this plan of care MEKA. I agree with and certify that the following plan of care is medically necessary. Referring Physician Date Admitting Provider: Attending Provider: Radha Molina MD Referring Provider: *PT Outpatient Evaluation Start: 11/23/20 09:38 Freq: Status: Active Protocol: Document 11/23/20 09:35 MARK (Rec: 11/23/20 11:04 MARK [id number]) Therapy Assessment Status Assessment Status Assessment Status Evaluation Outpatient Past Medical History Past Medical History Source of Past Medical History Recalled from Previous Visit, Confirmed with Patient/Family Neurological History Hx Neurological Disorders No Significant History Cardiovascular History Hx Cardiac Disorders No Significant History Respiratory History Hx Respiratory Disorders No Significant History Gastrointestinal History Hx Other Gastrointestinal Disorders Yes: COLITIS Genitourinary History Hx Genitourinary Disorders No Significant History Musculoskeletal History Hx Orthopedic Surgery Yes: ACL R HAMSTRING GRAFT 1997 Hematological History Hx Anemia Yes Hx Blood Transfusions Yes: AFTER Endocrine History Hx Hypothyroidism Yes HEENT History Hx Tonsillectomy Yes Hx Sinus Problems Yes: SINUS SURGERY X2 Integumentary History Hx Skin Disorders No Significant History Reproductive History Hx Section Yes: 12/2013 Hx Hysterectomy Yes: 03/03/2020-uterus, fallopian tubes,endometriosis Hx Other Reproductive Disorders Yes: PELVIC PAIN Psychosocial History Hx Psychiatric Disorders No Significant History Pain History History of Any Previous or Ongoing No Significant History Instance of Pain Anesthesia History Hx Post-Op Nausea/Vomiting Yes Evaluation Information Problem Diagnosis pelvic and perineal pain Onset ~ 1 year after C section Subjective Information Began to feel R lower quadrant Query Text:As Reported By Patient/ pain - started below C Family section scar. Pain continued - then had hysterectomy - felt good afterwards, then beginning of 2020 pain began to return into R lower pelvic area, and now radiating up into R rib region. Limited with prolonged acti
--- NOTE | 2020-12-28 11:12 | PTOPEVAL ---
PHYSICAL THERAPY RE-EVALUATION and UPDATED PLAN OF CARE Thank you for referring Marycarmen Franco to [facility] [place].? Marycarmen is scheduled to be seen for a physical therapy?recheck in 3 weeks. Please review, sign, date and return this plan of care MEKA. I agree with and certify that the following plan of care is medically necessary. Referring Physician Date Admitting Provider: Attending Provider: Radha Molina MD Referring Provider: Therapy Assessment Status Assessment Status Assessment Status Re-evaluation Evaluation Information Problem Diagnosis pelvic and perineal pain Subjective Information Marycarmen reports discomfort Query Text:As Reported By Patient/ more on the outside region now Family - points to R inguinal region . The discomfort is most noticeable at the end of her work day. Bending over and sitting are both doing better. She states doing ~ 75% improved. Pain Assessment Timing of Pain Assessment Timing of Pain Assessment Assessment Pain Scale Pain Scale Used Numeric (1 - 10) Self Report Pain Assessment Right Lower Pelvis Reported Pain Level 1 Pain Description Aching Lowest Pain Intensity 1 Greatest Pain Intensity 3 Pelvic Health Evaluation Pelvic Floor Assessment Permission Received for External/ Yes Internal Perineal Exam Internal Perineal Body Palpation no tenderness at introitus. Levator ani - mild tenderness posteriorly at 6 o'clock region, L side tenderness and mild tissue tension at 2-3 o' clock region, R side - tenderness and mild/moderate tightness 8-7 o'clock region. R sided tenderness is at same region of external discomfort /tightness only internally. Additional Comments Mild decreased mobility of R lower abdominal soft tissues - superior to R inguinal ligament. Pelvis/sacrum level - symmetrical SIJ mobility with trunk flexion PT Clinical Summary Clinical Summary Protocol: PTEVCODE PT Clinical Summary Pelvic Girdle Questionnaire - Marycarmen has progressed well in PT - improved pelvic/sacral/ SIJ alignment and mobility,
--- NOTE | 2021-02-08 15:06 | PTOPEVAL ---
PHYSICAL THERAPY DISCHARGE SUMMARY Thank you for referring Marycarmen Franco to [facility].? Marycarmen has been seen for 6 visits. She is now experiencing decreased R lower quadrant discomfort and has been able to resume ADLs, IADLs, and activities with children without increase in discomfort. She is ready for d/c from PT at this time. I agree with Marycarmen's discharge from PT. Referring Physician Date Admitting Provider: Attending Provider: Radha Molina MD Referring Provider: *PT Outpatient Evaluation Start: 11/23/20 09:38 Freq: Status: Active Protocol: Document 02/08/21 11:08 MARK (Rec: 02/08/21 12:01 MARK [id number]) Therapy Assessment Status Assessment Status Assessment Status Discharge Outpatient Past Medical History Past Medical History Source of Past Medical History Recalled from Previous Visit, Confirmed with Patient/Family Neurological History Hx Neurological Disorders No Significant History Cardiovascular History Hx Cardiac Disorders No Significant History Respiratory History Hx Respiratory Disorders No Significant History Gastrointestinal History Hx Other Gastrointestinal Disorders Yes: COLITIS Genitourinary History Hx Genitourinary Disorders No Significant History Musculoskeletal History Hx Orthopedic Surgery Yes: ACL R HAMSTRING GRAFT 1998 Hematological History Hx Anemia Yes Hx Blood Transfusions Yes: AFTER Endocrine History Hx Hypothyroidism Yes HEENT History Hx Tonsillectomy Yes Hx Sinus Problems Yes: SINUS SURGERY X2 Integumentary History Hx Skin Disorders No Significant History Reproductive History Hx Section Yes: 12/2013 Hx Hysterectomy Yes: 03/03/2020-uterus, fallopian tubes,endometriosis Psychosocial History Hx Psychiatric Disorders No Significant History Pain History History of Any Previous or Ongoing No Significant History Instance of Pain Anesthesia History Hx Post-Op Nausea/Vomiting Yes Evaluation Information Problem Diagnosis pelvic and perineal pain Subjective Information Marycarmen states that she will Query Text:As Reported By Patient/ get some mild discomfort still Family towards the end of her work day. Bending over and activities with her children are fine. No incontinence dysfunction. Pain Assessment Timing of Pain Assessment Timing of Pain Assessment Assessment Pain Scale Pain Scale Used Numeric (1 - 10) Self Report Pain Assessment Right Lower Pelvis Reported Pain Level 1 Pain Description
== END 2021-02-14 11:18 | disposition home or self-care (01) ==
LOC: ANHPT 11:00
PROVIDERS: PCP Internal Medicine; Visit Provider Student in an Organized Health Care Education/Training Program
DX: R10.2 Pelvic and perineal pain (principal)
CPT/HCPCS: 97140; 97162

== ENCOUNTER → 2021-02-26 07:25 | Outpatient (CLI) | payer OTHER, SELFPAY ==
[2021-02-28 20:24] LABS: SARS-CoV-2 RNA PCR Negative
== END ==
PROVIDERS: PCP Internal Medicine; Visit Provider Internal Medicine
DX: Z20.822 Contact with and (suspected) exposure to COVID-19 (principal)
CPT/HCPCS: C9803; U0003; U0005

== ENCOUNTER 2021-04-04 10:07 | Outpatient (CLI) | payer OTHER, SELFPAY ==
--- NOTE | ~2021-04-04 | NM_ITS ---
EXAMINATION: NM hepatobiliary wo pharm DATE: 04/04/2021 14:02 INDICATION: Nausea. COMPARISON: CT abdomen and pelvis 01/14/2019 TECHNIQUE: 4.8 mCi Tc-99m mebrofenin (Choletec) was administered intravenously. Scintigraphic images of the abdomen were obtained for one hour. Then, the patient drank 8 oz Ensure, and imaging was cont inued for 60 minutes. FINDINGS: There is normal clearance of radiotracer from the blood pool. There is homogeneous tracer u ptake by the liver. Activity progresses to the bowel and gallbladder. Gallbladder ejection fraction (GBEF) was 58%. Note that with this technique, normal GBEF >= 33%. IMPRESSION: 1. Normal hepatobiliary scintigraphy. Reviewed, dictated and finalized at location A.
== END 2021-04-04 10:08 | disposition home or self-care (01) ==
LOC: ANHIMG 10:11
PROVIDERS: PCP Internal Medicine; Visit Provider Internal Medicine
DX: R11.0 Nausea (principal); R10.11 Right upper quadrant pain
CPT/HCPCS: 78226; A9537

== ENCOUNTER 2021-04-06 08:52 | Outpatient (CLI) | payer OTHER, SELFPAY ==
--- NOTE | ~2021-04-06 | XR_ITS ---
XR UGIAC w small bowel DATE: 04/06/2021 09:46 INDICATION: Right-sided abdominal pain, nausea TECHNIQUE: Air-contrast upper gastrointestinal series and small bowel follow-through 1.7 minutes fluoroscopy time DAP: 38.227 136 images COMPARISON: None FINDINGS: There is normal deglutition and esophageal peristalsis. No stricture, mucosal fold thickeni ng, erosion, ulceration, diverticulum or intraluminal mass lesion of the esophagus, stomach or duoden um. The duodenal bulb is normally shaped. There is normal transit of contrast material through the sm all bowel. No mucosal fold thickening, stricture, obstruction, abnormal dilatation or intraluminal ma ss lesion of the small bowel. Spot images of the terminal ileum reveal no abnormality. IMPRESSION: Normal examination Reviewed, dictated and finalized at Location A. Reviewed, dictated and finalized at location A. IMPRESSION: Normal examination
== END 2021-04-06 08:53 | disposition home or self-care (01) ==
LOC: ANHIMG 08:55
PROVIDERS: PCP Internal Medicine; Visit Provider Internal Medicine
DX: R11.0 Nausea (principal); R10.11 Right upper quadrant pain
CPT/HCPCS: 74246; 74248

== ENCOUNTER → 2021-10-03 11:08 | Outpatient (CLI) | payer OTHER, SELFPAY ==
--- NOTE | ~2021-10-03 | MM_ITS ---
EXAMINATION: MM screening dickson BI w tiffanie HISTORY: Screening mammogram TECHNIQUE: Craniocaudal and mediolateral oblique 3-D tomosynthesis images were obtained and synthetic 2-D images were generated. CAD analysis was submitted and interpreted. COMPARISON: 07/03/2020, 03/31/2018 bilateral screening mammogram examinations BREAST PARENCHYMAL COMPOSITION: The breasts are heterogeneously dense, which may obscure small masses . FINDINGS: There is no evidence of suspicious mass, calcification, or architectural distortion to sugg est malignancy in either breast. There has been no suspicious interval change. IMPRESSION: 1. No mammographic evidence of malignancy. 2. Recommend routine screening mammography in one year. BI-RADS Category 1: Negative Reviewed, dictated and finalized at location A.
== END ==
PROVIDERS: PCP Internal Medicine; Visit Provider Student in an Organized Health Care Education/Training Program
DX: Z12.31 Encounter for screening mammogram for malignant neoplasm of breast (principal)
CPT/HCPCS: 77063; 77067

== ENCOUNTER 2021-11-07 09:27 | Outpatient (CLI) | payer OTHER, SELFPAY ==
--- NOTE | ~2021-11-07 | US_ITS ---
EXAMINATION: US pelvic complete w TV DATE: 11/07/2021 10:03 INDICATION: Status post hysterectomy. Pelvic pain. Comparison:Ultrasound dated 10/19/2020 TECHNIQUE: Multiple transabdominal and endovaginal sonographic images of the pelvis performed. FINDINGS: The uterus is surgically absent. The right ovary measures 4.2 x 3.1 x 3 cm and the left ovary measures 2.4 x 2.2 x 1.3 cm. There is a right ovarian cyst measuring 3.2 x 2.3 x 2.5 cm Normal doppler signal in both ovaries. There is no free fluid in the pelvis. There are no abnormal masses seen on either side. IMPRESSION: 1. Right ovarian cyst measuring 3.2 cm maximum dimension. Reviewed, dictated and finalized at location A.
== END 2021-11-07 09:28 | disposition home or self-care (01) ==
PROVIDERS: PCP Internal Medicine; Visit Provider Student in an Organized Health Care Education/Training Program
DX: R10.2 Pelvic and perineal pain (principal)
CPT/HCPCS: 76830; 76856

== ENCOUNTER 2022-02-13 09:33 | Outpatient (CLI) | payer OTHER, SELFPAY ==
--- NOTE | 2022-02-13 09:30 | ECG_ITS ---
Measurements Intervals [place] Rate: 85 P: 57 PA: 148 QRS: 24 QRSD: 74 T: 36 QT: 356 QTc: 425 Interpretive Statements SINUS RHYTHM BASELINE ARTIFACT CANNOT RULE OUT SEPTAL INFARCT AGE INDETERMINATE BORDERLINE ECG COMPARED TO ECG 02/22/2020 11:43:11 NO SIGNIFICANT CHANGES Electronically Signed On 02-13-2022 16:08:08 CDT by Ruperto Valdes M.D.
== END 2022-02-13 09:34 | disposition home or self-care (01) ==
PROVIDERS: PCP Internal Medicine; Visit Provider Student in an Organized Health Care Education/Training Program
DX: Z01.810 Encounter for preprocedural cardiovascular examination (principal); E78.5 Hyperlipidemia, unspecified
CPT/HCPCS: 93005

== ENCOUNTER 2022-02-15 01:08 | Day surgery (SDC) | payer OTHER, SELFPAY ==
[2022-02-11 16:43] VITALS: BMI 24.0
--- NOTE | 2022-02-11 17:03 | SUR.PREOP ---
Report to the Outpatient Waiting Room, entrance under the green pavilion located off [facility], at time 0800 on date 02/11/22. OR Time: 1000. - You and your visitor will be asked to self-screen and do not enter if you have any COVID symptoms. - Only one visitor and NO children visitors are allowed at this time. - The patient visitor is requested to leave or wait in car when not with patient due to restrictions. - A mask is required within the hospital. Patients may have clear liquids (water, carbonated beverages, clear teas, apple juice) until 3 hours prior to surgery (0700) with a maximum of 20 ounces. - No food from midnight until time of surgery - Infants may have breast milk until 4 hours before surgery, formula 6 hours prior to surgery. - Children will be allowed to drink immediately following surgery. If applicable, please bring a bottle or sippy cup to assist with drinking. Juice, water, soda, and popsicles are readily available. For infants on formula, please bring formula the day of surgery. Pacifiers are allowed. Take the following medications with a SIP of water the morning of surgery: Synthroid Medications to discontinue per physician Vitamins/supplements Date to take last dose 02/12/22 Please no make-up, nail kenyan, hairspray, perfume, deodorant, or body powder the day of surgery. No jewelry (including any body piercings) or valuables the day of surgery, leave them at home. Please take a shower or bath the night before, or the morning of, surgery with an antibacterial soap. Wear comfortable, loose fitting clothing. Children are encouraged to wear pajamas. - Jewelry must be removed prior to entering the operating room. Rings and piercings that are not removed may be cut off. - The hospital will not accept responsibility for valuables. - Please leave all valuables, including medications, at home the day of surgery. If you are going home after surgery, a licensed electric train driver must drive you home. - NO public transportation without another adult. - We recommend that an adult stay with you for 24 hours following discharge. - We also recommend that you do not drive, make important decision, drink alcoholic beverages, or take any drugs that were not prescribed by your health care provider for at least 24 hours after your discharge time. For Pediatric surgeries, we recommend two adults accompany the child home (only one inside the building at this time). Follow any additional instructions given to you from your surgeon. If you or anyone in your household have experienced Covid symptoms in the past week, please notify your surgeon or the nurse liaison at the phone number below for possible testing. Telephone instructions given to patient and asked if any additional questions and then verbalized understanding. Patient advised to call surgeon office or pre surgery nurse liaison [phone] if any additional questions.
--- NOTE | 2022-02-14 09:30 | WPDANESEPPF ---
Anes - Initial Pre Proc Eval Procedure: Operation Date: 02/15/22 10:00 Proposed Procedures p Laparoscopic Right Oophorectomy - Radha Molina MD Date/Time: 02/14/22 09:31 Surgeon: Radha Molina MD Pre Op Diagnosis: pelvic and perineal pain, ovarian cyst Patient Data Age: 46 Gender: F Height: 1.7 m Weight: 69.5 kg Allergies Allergy/AdvReac Type Severity Reaction Status Date / Time codeine AdvReac Intermediate Nausea And Verified 02/15/22 08:25 Vomiting Home Medications Medication Instructions Recorded Confirmed Type lactobacillus combination no.8 3 3,000 mmu cells PO DAILY 08/12/19 02/11/22 History billion cell capsule (Adult Probiotic) levocetirizine 5 mg tablet (Xyzal) 5 mg PO DAILY PRN Allergy Symptoms 05/29/20 02/11/22 History ibuprofen 800 mg tablet See Rx Instructions .Route 06/20/21 02/15/22 Rx .COMPLEX #45 tabs naproxen 500 mg tablet See Rx Instructions .Route 09/21/21 02/15/22 Rx .COMPLEX #60 tabs pravastatin 40 mg tablet See Rx Instructions .Route 09/24/21 02/11/22 Rx .COMPLEX #90 tabs Synthroid 100 mcg tablet 100 mcg PO DAILY #90 tabs 10/10/21 02/11/22 Rx (levothyroxine) pantoprazole 40 mg tablet,delayed 40 mg PO QAM 10/10/21 02/11/22 History release albuterol sulfate 90 mcg/actuation 2 inh inhalation Q4-6H PRN 01/30/22 02/15/22 Rx aerosol inhaler shortness of breath or wheezing #8.5 grams Patient hx anesthesia problems: none Family hx anesthesia problems: none Results Review: All pre-operative results and documents have been reviewed as part of the pre-operative evaluation. [facility] Past Medical History Medical History Abnormal TSH Blood transfusion during current hospitalization BMI 22.0-22.9, adult BMI 24.0-24.9, adult BMI 25.0-25.9,adult BMI 26.0-26.9,adult Bronchitis Campylobacter gastroenteritis Chest discomfort Chronic sinusitis Costochondritis Cough Elevated glucose Encounter for preventive health examination Encounter for routine adult health examination without abnormal findings Exploratory laparotomy scar Exposure to COVID-19 virus Hematoma Hyperlipidemia Hypothyroidism Hypothyroidism (acquired) Iron deficiency anemia Nausea On roasterman drug therapy Otalgia Other ovarian cyst, unspecified side Ovarian cyst PONV (postoperative nausea and vomiting) Reactive airways dysfunction syndrome RUQ pain Sinus headache SOB (shortness of breath) Swelling, lymph nodes URI (upper respiratory infection) Surgical History Surgical History H/O knee surgery History of removal of ovarian cyst History of rhinoplasty Hx of tonsillectomy S/P total hysterectomy Twin delivery by [place] teeth extracted Family History Family History Mother Diabetes mellitus Family history of pancreatic cancer Grandparent Acute myocardial infarction Father Family history of pancreatic cancer Other Family history of seizure disorder Social History Social History Smoking status: Never smoker Second hand tobacco smoke exposure: No Alcohol intake: current Alcohol use details: very rare- socially once a month Living arrangements: with family Spiritual care concerns: No Anes - Eval Final PreProcedure Day of Procedure 02/14/22 09:31 Patient weight: normal Heart: regular rate and rhythm Lungs: clear to auscultation Airway: Mallampati scale class II Neurological: alert and oriented Last oral intake: >/= 8 hours ASA classification: II Emergent: no Anesthetic plan: proceed Anesthesia type and monitoring: general ETT and standard monitoring Results Review: All pre-operative results and documents have been reviewed as part of the pre-operative evaluation. Informed Consent: The patient's anesthetic plan and its
--- NOTE | 2022-02-14 17:21 | PM.IMHP ---
H&P: HPI History of Present Illness Date/Time: 02/14/22 17:21 Chief Complaint: pelvic pain Narrative: Patient is a 46yo woman s/p KARISHMA/bilateral salpingectomy in 02/2020. For past several months, patient reported cyclic pelvic pain that was originally cycle, however, gradually became more constant over time. Pain is mostly right sided pelvic pain and lower back pain. Patient describes pain as a constant awful period with painful cramping. She denies significant pain on left side. She failed a trial of medical management with OCPs and is frustrated and tired of the pain. A 3cm right ovarian cyst was also noted on imaging. After discussion, decision made to perform a diagnostic laparoscopy and right oophorectomy in an attempt to alleviate symptoms. Review of Systems Review of Systems: All systems reviewed & are unremarkable except as noted in HPI and below Constitutional: Constitutional: Reports as per HPI and Reports no additional constitutional complaints Eyes: Eyes: Reports as per HPI and Reports no additional eye complaints ENT: Reports system reviewed and no additional complaints, except as documented and Reports as per HPI Cardiovascular: Cardiovascular: Reports as per HPI and Reports no additional cardiovascular complaints Respiratory: Respiratory: Reports as per HPI and Reports no additional respiratory complaints Gastrointestinal: Gastrointestinal: Reports as per HPI and Reports no additional gastrointestinal complaints Genitourinary: Genitourinary: Reports no additional female genitourinary complaints and Reports as per HPI Musculoskeletal: Musculoskeletal: Reports no additional musculoskeletal complaints and Reports as per HPI Integumentary/Breasts: Skin/Breast: Reports system reviewed and no additional complaints, except as docu and Reports as per HPI Neurologic: Reports system reviewed and no additional complaints, except as documented and Reports as per HPI Psychiatric: Psychiatric: Reports no additional psychiatric complaints and Reports as per HPI Endocrine: Endocrine: Reports no additional endocrine complaints and Reports as per HPI Hematologic/Lymphatic: Hematologic/Lymphatic: Reports no additional hematologic/lymphatic complaints and Reports as per HPI Allergic/Immunologic: Allergic/Immunologic: Reports no additional allergic/immunologic complaints and Reports as per HPI [facility] Past Medical History Medical History Abnormal TSH Blood transfusion during current hospitalization BMI 22.0-22.9, adult BMI 24.0-24.9, adult BMI 25.0-25.9,adult BMI 26.0-26.9,adult Bronchitis Campylobacter gastroenteritis Chest discomfort Chronic sinusitis Costochondritis Cough Elevated glucose Encounter for preventive health examination Encounter for routine adult health examination without abnormal findings Exploratory laparotomy scar Exposure to COVID-19 virus Hematoma Hyperlipidemia Hypothyroidism Hypothyroidism (acquired) Iron deficiency anemia Nausea 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 Otalgia Other ovarian cyst, unspecified side Ovarian cyst PONV (postoperative nausea and vomiting) Reactive airways dysfunction syndrome RUQ pain Sinus headache SOB (shortness of breath) Swelling, lymph nodes URI (upper respiratory infection) Surgical History Surgical History H/O knee surgery History of removal of ovarian cyst History of rhinoplasty Hx of tonsillectomy S/P total hysterectomy Twin delivery by [place] teeth extracted Family History Family History Mother Diabetes mellitus Family history of pancreatic cancer Grandparent Acute myocardial infarction Father Family history of pancreatic cancer Other Family history of seizure disorder Social History Social History Smoking status: Never smoke
[2022-02-15] VITALS (10 sets, daily range): BP systolic 97–115; BP diastolic 61–89; PULSE 45–83; RESP 14–20; TEMP 36.4–36.5; O2SAT 98–100
[2022-02-15] MEDS: ACETAMINOPHEN 500 MG TABLET 1000 MG PO (08:30)
[2022-02-15] MEDS: LACTATED RINGERS 1,000 ML 30 ML IV CONT ×2 (08:40→10:57)
[2022-02-15] MEDS: KETOROLAC 15 MG/ML VIAL (*BKC) IV PUSH (08:43)
[2022-02-15] MEDS: SCOPOLAMINE 1.5 MG PATCH TRANSDERM (09:06)
--- NOTE | 2022-02-15 09:15 | WPDHPUPDATE1 ---
History and Physical Update Update Date/Time: 02/15/22 09:15 History and Physical has been reviewed, including an updated exam of the patient. There are NO changes in the patient's condition. Risks, benefits, and alternatives have been discussed and questions answered. Patient agrees to proceed with procedure.
[2022-02-15] MEDS: BUPIVACAINE/EPINEPHRINE 0.25% 50 ML VIAL 30 ML INFILTRATE (10:51)
[2022-02-15] MEDS: fentaNYL CITRATE INJ (*CRX) 100 MCG/2 ML VIAL 25 MCG IV PUSH ×3 (11:20→11:43)
--- NOTE | 2022-02-15 11:25 | W.PM.PROC2 ---
Procedure Note - Detailed Date of Procedure 02/15/22 Pre-op Diagnosis Pelvic and perineal pain, ovarian cyst Post-op Diagnosis Same Procedure Performed Diagnostic laparoscopy, lysis of adhesions, laparoscopic right oophorectomy Surgeon Radha Molina MD [employer] Aditi Todd Anesthesia General Findings Omental adhesion to anterior abdominal wall, portion of small bowel adherent to right ovary, slightly enlarged right ovary, normal appearing left ovary, visualized portion of liver also appeared normal Description of Procedure Patient was taken the operating room where she self-transferred to the operating room table. She was placed in dorsal supine position. General anesthesia was administered and found to be adequate. Patient was repositioned in dorsal lithotomy position with the use of Reji stirrups. She was prepped and draped in the usual sterile fashion. A red rubber catheter was used to drain the bladder of 350 cc of clear urine. Sports Journalist's gloves were changed. Attention was then turned to the patient's abdomen. A small amount of 0.25% Marcaine was injected in the infraumbilical region.? An infraumbilical skin incision was made with a scalpel. With the abdomen tented up, a Veress needle was introduced into the abdominal cavity.? Intra-abdominal placement was confirmed with saline.? The Veress needle was connected to CO2 tubing and insufflation was begun.? When adequate pneumoperitoneum was achieved, the Veress needle was removed and a 5 mm Optiview trocar was introduced under direct visualization with the laparoscope.? An omental adhesion to the anterior abdominal wall was visualized. Photographs were taken. Decision was made to place two accessory trocars for completion of the procedure, one in the left lower quadrant and the other in the right lower quadrant. A small amount of Marcaine was administered in the right lower quadrant and a skin incision was made. A 5 mm trocar was introduced under direct visualization. Similarly, a small amount of Marcaine was administered in the left lower quadrant and a skin incision was made. A 10 mm trocar was introduced under direct visualization. With the use of a LigaSure device, the omental adhesion was serially cauterized and transected, completely freeing the omentum, This allowed for increased visualization. The patient was placed in Trendelenburg position and a general pelvic survey was performed. Upon further evaluation, a segment of small bowel was noted to be adherent to the right ovary via mostly filmy adhesions. The right ovary, however, appeared slightly enlarged, but otherwise, normal. With the small bowel carefully elevated, using the LigaSure device with monopolar cautery, the adhesions between the small bowel and ovary were transected, completely releasing the bowel. The ureter on the right side was identified. The infundibulopelvic ligament on the right side was transected with the LigaSure device and the right ovary was excised with serial bites along the pelvic sidewall. An Endo-Catch bag was introduced into the abdominal cavity and deployed. The specimen was placed inside of the bag and the 10 mm trocar, bag, and specimen were removed. The specimen was handed off to be sent to pathology. The trocar was replaced. The pelvic sidewall was inspected and hemostatic. The bowel was also inspected. Superficial abrasions from where adhesions were transected were noted on the surface of the bowel. Interceed was applied on top of small bowel. The left ovary was inspected and appeared to be normal. A general abdominal survey was completed and appeared grossly normal. The visualized portions of the liver appeared normal. Several photographs were taken throughout the entire procedure. The 10 mm trocar in the left lower quadrant was removed. A Vignesh-Abe device was introduced and an 0 Vicryl suture was used to close the fascia. All other trocars were removed and the abdomen was desufflated. The patient'
[2022-02-15] MEDS: ACETAMINOPHEN 500 MG TABLET PO (13:41)
--- NOTE | 2022-02-15 13:53 | SUR.PHASEII ---
PT HAD PAIN OF 4/10. PT WANTED TYLENOL.
--- NOTE | 2022-02-15 13:55 | SUR.PHASEII ---
DUPLICATE CHARTING ON VITALS AT 1225 AND 1325.
== END 2022-02-15 13:41 | disposition home or self-care (01) ==
PROVIDERS: PCP Internal Medicine; Visit Provider Student in an Organized Health Care Education/Training Program
PROC: (CPT 49320; principal; 2022-02-15 10:00)
DX: R10.2 Pelvic and perineal pain (principal); N73.6 Female pelvic peritoneal adhesions (postinfective); Z86.16 Personal history of COVID-19; E03.9 Hypothyroidism, unspecified; E78.5 Hyperlipidemia, unspecified; D50.9 Iron deficiency anemia, unspecified; Z79.51 Long term (current) use of inhaled steroids; N80.1 Endometriosis of ovary
CPT/HCPCS: 58661; 88305; 93005; A9270; J0330; J1885; J2250; J2405; J2704; J3010; J7030; J7120

== ENCOUNTER 2022-08-09 12:18 | Outpatient (CLI) | payer OTHER, SELFPAY ==
--- NOTE | ~2022-08-09 | XR_ITS ---
EXAMINATION: XR chest 2V 08/09/2022 12:30 INDICATION: Acute upper respiratory infection PROCEDURE: 2 view chest COMPARISON: 09/07/2019 FINDINGS: The lungs are clear. The cardiomediastinal silhouette is within normal limits. There are no pleural effusions. There is no pneumothorax suspected. IMPRESSION: 1: NO ACUTE CARDIOPULMONARY DISEASE. Reviewed, dictated and finalized at location A. 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
== END 2022-08-09 12:19 | disposition home or self-care (01) ==
LOC: ANHIMG 12:21
PROVIDERS: PCP Internal Medicine; Visit Provider Internal Medicine
DX: J06.9 Acute upper respiratory infection, unspecified (principal); R05.9 Cough, unspecified; R09.89 Other specified symptoms and signs involving the circulatory and respiratory systems
CPT/HCPCS: 71046

== ENCOUNTER → 2023-01-29 10:20 | Outpatient (CLI) | payer OTHER, SELFPAY ==
--- NOTE | ~2023-01-29 | CT_ITS ---
EXAMINATION: CT abdomen pelvis w con DATE: 01/29/2023 10:45 INDICATION: Diarrhea TECHNIQUE: Computed tomography (CT) of the abdomen and pelvis was performed with 100 mL Omnipaque-350 intravenous contrast. Automated exposure control and iterative reconstruction technique were employe d. The dose-length product was 440.05 mGy-cm. COMPARISON: 01/14/2019 FINDINGS: Mild dependent atelectasis in the bilateral lower lobes. Heart size is normal. No pericardial or pleu ral effusion. Liver, gallbladder, spleen, pancreas, bilateral adrenal glands and kidneys are normal. Moderate amount of stool seen throughout the colon. Mild edematous wall thickening at the distal sigm oid colon and rectum consistent with proctocolitis. Small bowel and appendix are normal. The uterus i s not identified and has likely been surgically resected. Bladder is normal. No free intraperitoneal gas or fluid. No pathologically enlarged abdominal or pelvic lymphadenopathy. Mild lumbar spondylosis . IMPRESSION: 1. Mild wall thickening the distal sigmoid colon and rectum consistent with proctocolitis which most likely infectious or inflammatory in etiology. Reviewed, dictated and finalized at location B. IMPRESSION: 1. Mild wall thickening the distal sigmoid colon and rectum consistent with pro ctocolitis which most likely infectious or inflammatory in etiology.
== END ==
PROVIDERS: PCP Internal Medicine; Visit Provider Internal Medicine
DX: R19.7 Diarrhea, unspecified (principal); R14.0 Abdominal distension (gaseous); R93.3 Abnormal findings on diagnostic imaging of other parts of digestive tract
CPT/HCPCS: 74177; Q9967

== ENCOUNTER 2023-08-11 09:27 | Outpatient (CLI) | payer OTHER, SELFPAY ==
--- NOTE | ~2023-08-11 | CT_ITS ---
EXAMINATION: CT sinus wo con DATE: 08/11/2023 09:53 INDICATION: Chronic sinusitis TECHNIQUE: Computed tomography (CT) of the paranasal sinuses was performed without intravenous contra st. The dose-length product (DLP) was 325.47 mGy-cm. Iterative reconstruction was used. COMPARISON: 07/14/2019 FINDINGS: The right frontal sinus is hypoplastic. There is otherwise normal development and pneumatiz ation of the paranasal sinuses. The frontal, sphenoid, ethmoid, and maxillary sinuses are clear. The bilateral ostiomeatal complexes are patent. Visualized soft tissues are unremarkable. IMPRESSION: 1. Unremarkable sinus CT. Reviewed, dictated and finalized at location B. PERFORATOR IMPRESSION: 1. Unremarkable sinus CT.
== END 2023-08-11 09:28 | disposition home or self-care (01) ==
PROVIDERS: PCP Internal Medicine; Visit Provider Otolaryngology
DX: J32.0 Chronic maxillary sinusitis (principal); J30.2 Other seasonal allergic rhinitis; H69.90 Unspecified Eustachian tube disorder, unspecified ear
CPT/HCPCS: 70486

== ENCOUNTER 2024-01-30 11:36 | Outpatient (CLI) | payer OTHER, SELFPAY ==
--- NOTE | ~2024-01-30 | XR_ITS ---
XR abdomen/kub 1V Ordering provider: Donn Cohen MD History: . R10.9 - Unspecified abdominal pain RT SIDED. UTI . Comparison: None. FINDINGS: BOWEL: Nonobstructive bowel gas pattern. ORGANOMEGALY: None. SIGNIFICANT PATHOLOGIC CALCIFICATIONS: Calcifications in the right upper quadrant which may be gallst ones. Ultrasound evaluation advised. OTHER: No free air is seen under the diaphragm. IMPRESSION: NO ACUTE ABDOMINAL FINDINGS. Calcifications in the right upper quadrant which may be gallstones. Ultrasound evaluation advised. Reviewed, dictated and finalized at location A.
[2024-01-30 12:12] LABS: Basophils Absolute Auto 0.1 K/mm3 (0.0-0.1); Basophils Percent Auto 1.2 % (0.2-1.2); Eosinophils Absolute Auto 0.5 K/mm3 (0-0.3); Eosinophils Percent Auto 8.2 % (0-4.4); Hematocrit 42.2 % (37.0-47.0); Hemoglobin 13.7 g/dL (12.0-15.0); Immature Granulocyte Absolute 0.01 K/mm3 (0.00-0.031); Immature Granulocyte Percent A 0.2 % (0-0.5); Lymphocytes Absolute Auto 1.71 K/mm3 (0.9-3.2); Mean Corpuscular HGB Conc 32.5 g/dl (32-36); Mean Corpuscular Hemoglobin 29.5 pg (26-34); Mean Corpuscular Volume 90.9 fl (80-100); Mean Platelet Volume 8.7 fl (7.4-10.4); Monocytes Absolute Auto 0.5 K/mm3 (0.1-0.6); Neutrophils Absolute Auto 3.8 K/mm3 (1.3-6.7); Neutrophils Percent Auto 57.4 % (45.5-73.1); Platelet Count Result 369 k/mm3 (150-375); Red Blood Count 4.64 M/mm3 (4.2-5.4); White Blood Count 6.6 K/mm3 (4.5-10.0)
== END 2024-01-30 11:37 | disposition home or self-care (01) ==
LOC: ANHLAB 11:38
PROVIDERS: PCP Internal Medicine; Visit Provider Internal Medicine
DX: K80.20 Calculus of gallbladder without cholecystitis without obstruction (principal)
CPT/HCPCS: 36415; 74018; 85025

== ENCOUNTER 2024-02-05 11:18 | Outpatient (CLI) | payer OTHER, SELFPAY ==
--- NOTE | ~2024-02-05 | US_ITS ---
COMPLETE ABDOMINAL ULTRASOUND Ordering provider: Donn Cohen MD History: . R10.11 - Right upper quadrant pain . Comparison: None. FINDINGS: LIVER: Normal size and echotexture. No focal hepatic lesions or perihepatic fluid collections are charly ntified. Popliteal vein flow is normal. GALLBLADDER: Unremarkable. No evidence for stones, sludge, gallbladder wall thickening or pericholecy stic fluid collections. Wall thickness is 0.2 cm. A negative sonographic Drew's sign was noted. BILIARY DUCTS: No evidence for intra or extrahepatic biliary dilation. Common bile duct measures 4 mm in diameter which is within normal limits. PANCREAS: Normal echotexture and size. SPLEEN: Normal size, echotexture and contour and measures 11.1 cm in length. KIDNEYS: Right measures 11x 3.4x 5.9 cm in length and the left 10.4x 5.6x 5.2 cm in length. There is no evidence for hydronephrosis, solid renal mass, renal calculi or perinephric fluid collections. No renal cysts. UPPER ABDOMINAL AORTA: Normal in caliber. IVC: Patent. FREE FLUID: None. IMPRESSION: Unremarkable complete ultrasound of the abdomen. Reviewed, dictated and finalized at location A.
--- NOTE | ~2024-02-05 | CT_ITS ---
EXAMINATION: CT abdomen pelvis w con DATE: 02/05/2024 11:50 INDICATION: Unspecified abdominal pain. Right flank pain. TECHNIQUE: Computed tomography (CT) of the abdomen and pelvis was performed with 100 mL Omnipaque 350 intravenous contrast. Automated exposure control and iterative reconstruction technique were employe d. The dose-length product was 402.75 mGy-cm. COMPARISON: CT abdomen and pelvis 01/29/2023 FINDINGS: The visualized portions of the lung bases demonstrate mild atelectasis. No pleural effusion . The heart size is normal. No pericardial effusion. The liver, gallbladder, spleen, pancreas, adrena l glands, and kidneys are normal. There are no dilated loops of bowel. The appendix is normal. There are no pathologically enlarged lymph nodes. There is no free intraperitoneal fluid. There is mild tho racic and lumbar spondylosis. IMPRESSION: 1. No etiology for the patient's symptoms. Reviewed, dictated and finalized at location A.
== END 2024-02-05 11:19 ==
LOC: MICIMG 11:18
PROVIDERS: PCP Internal Medicine; Visit Provider Internal Medicine
DX: R10.9 Unspecified abdominal pain (principal); R10.11 Right upper quadrant pain
CPT/HCPCS: 74177; 76700; Q9967